=== PATIENT | male | born 1955 | race Caucasian/White ===

== ENCOUNTER 2021-08-25 08:50 | Outpatient (CLI) | payer MEDICARE | END 2021-08-25 08:51 | disposition home or self-care (01) | LOC: NM 08:50 | PROVIDERS: ATTEND Psychiatry & Neurology Neurology | DX: G20 Parkinson's disease (principal) | CPT/HCPCS: 78803; A9584 ==

== ENCOUNTER 2024-03-17 09:24 | Outpatient (CLI) | payer MEDICARE ==
[2024-03-17 10:14] LABS: #Basophils 0.03 10x3/uL (0.0-0.2); #Eosinphils 0.11 10x3/uL (0.0-0.5); #Monocytes 0.54 10x3/uL (0.0-1.1); #Neutrophils 5.31 10x3/uL (1.5-8.4); %Basophils 0.4 % (0.0-2.0); %Eosinophils 1.5 % (0.0-6.0); %Lymphocytes 19.4 % (18.0-47.0); %Monocytes 7.2 % (0.0-10.0); %Neutrophils 71.2 % (40.0-75.0); Hematocrit 45.2 % (38.8-50.0); Mean Corpuscular HGB CONC 35.4 g/dL (32.0-36.0); Mean Corpuscular Hemoglobin 31.8 pg (27.0-33.0); Mean Corpuscular Volume 89.9 fL (81.2-95.1); Mean Platelet Volume 10.4 fL (7.4-10.4); Platelet Count 186 10x3/uL (150-450); RBC Distribution Width 13.1 % (11.5-14.5); Red Blood Cell (RBC) Count 5.03 10x6/uL (4.32-5.72); White Blood Cell (WBC) Count 7.5 10x3/uL (3.5-10.5)
== END 2024-03-17 09:25 | disposition home or self-care (01) ==
LOC: LABBT 09:24
PROVIDERS: ATTEND Orthopaedic Surgery Hand Surgery
DX: Z01.818 Encounter for other preprocedural examination (principal); G56.01 Carpal tunnel syndrome, right upper limb; G56.21 Lesion of ulnar nerve, right upper limb
CPT/HCPCS: 85025; 93005; 93010

== ENCOUNTER 2024-03-20 06:13 | Day surgery (SDC) | payer MEDICARE ==
[2024-03-20] MEDS ORDERED: PROPOFOL 20 ML ONE (06:37)
[2024-03-20] MEDS ORDERED: fentaNYL PF 100 MCG/2 ML SYRINGE ONE (06:37)
[2024-03-20] MEDS ORDERED: CEFAZOLIN 2 GM VIAL ONE (06:40)
[2024-03-20] MEDS ORDERED: Sodium Chloride 0.9% 100 ML ONE (06:40)
[2024-03-20] MEDS ORDERED: Bupivacaine PF 0.5% 30 ML VIAL ONE (06:40)
[2024-03-20] MEDS ORDERED: Bacitracin Zinc Ointment 30 gm TUBE ONE (06:40)
[2024-03-20] MEDS ORDERED: Lidocaine 1% PF 5 ML VIAL ONE (07:16)
[2024-03-20] MEDS ORDERED: Dexamethasone 4 mg/ml Vial ONE (07:18)
[2024-03-20] MEDS ORDERED: Ondansetron PF 4 MG/2 ML Vial ONE (07:18)
[2024-03-20] MEDS ORDERED: Glycopyrrolate 0.2 MG/ML 5 ML SYRINGE ONE (07:21)
[2024-03-20] MEDS ORDERED: ePHEDrine Sulfate 50 MG/10 ML VIAL ONE (07:23)
[2024-03-20] MEDS ORDERED: PHENYLEPHRINE-NS 100 MCG/ML 10 ML SYRINGE ONE (07:43)
[2024-03-20] MEDS ORDERED: Ketorolac Tromethamine 30 MG (1 mL) VIAL ONE (09:03)
== END 2024-03-20 10:00 | disposition home or self-care (01) ==
LOC: SDC 06:13
PROVIDERS: ATTEND Orthopaedic Surgery Hand Surgery
PROC: 01N50ZZ Release Median Nerve, Open Approach (ICD-10-PCS; principal; 2024-03-20)
PROC: 01N40ZZ Release Ulnar Nerve, Open Approach (ICD-10-PCS; 2024-03-20)
PROC: 0JBG0ZZ Excision of Right Lower Arm Subcutaneous Tissue and Fascia, Open Approach (ICD-10-PCS; 2024-03-20)
DX: G56.01 Carpal tunnel syndrome, right upper limb (principal); G56.21 Lesion of ulnar nerve, right upper limb; D17.21 Benign lipomatous neoplasm of skin and subcutaneous tissue of right arm; Z87.891 Personal history of nicotine dependence
CPT/HCPCS: 25075; 64719; 64721; A6223; J0665; J1100; J1885; J2405; J2704; J3490; 88304

== ENCOUNTER 2024-07-23 10:12 | Outpatient (CLI) | payer MEDICARE, OTHER | END 2024-07-23 10:13 | disposition home or self-care (01) | LOC: SCSMRI 10:12 | PROVIDERS: ATTEND Orthopaedic Surgery Hand Surgery | DX: S83.241A Other tear of medial meniscus, current injury, right knee, initial encounter (principal); S83.511A Sprain of anterior cruciate ligament of right knee, initial encounter; M22.8X1 Other disorders of patella, right knee; M25.461 Effusion, right knee ==

== ENCOUNTER 2025-07-19 14:38 | Outpatient (CLI) | payer MEDICARE, OTHER ==
[2025-07-19 16:09] LABS: #Basophils 0.03 10x3/uL (0.0-0.2); #Eosinophils 0.09 10x3/uL (0.0-0.7); #Monocytes 0.67 10x3/uL (0.11-0.59); #Neutrophils 5.29 10x3/uL (1.40-6.50); %Basophils 0.4 % (0.0-1.0); %Eosinophils 1.1 % (0.0-10.0); %Lymphocytes 25.8 % (21.0-51.0); %Monocytes 8.2 % (0.0-10.0); %Neutrophils 64.3 % (42.0-75.0); Hematocrit 47.1 % (42.0-52.0); Hemoglobin 15.8 g/dL (14.0-18.0); Mean Corpuscular Hemoglobin 30.6 pg (27.0-31.0); Mean Corpuscular Volume 91.3 fL (78.0-98.0); Platelet Count 188 10x3/uL (130-400); Red Blood Cell (RBC) Count 5.16 mill/uL (4.70-6.10); White Blood Cell (WBC) Count 8.22 10x3/uL (4.8-10.8)
[2025-07-19 16:22] LABS: INR-International Normal Ratio 1.0; PTT 31.0 sec (22.9-36.1); Prothrombin Time 12.9 sec (12.0-14.7)
[2025-07-19 16:47] LABS: Anion Gap 11 mmol/L (10-20); BUN (Urea Nitrogen) 18 mg/dL (8.4-25.7); Calc. Creatinine Clearance 0 mL/min (70-130); Calcium 9.3 mg/dL (7.8-10.44); Carbon Dioxide 24 mmol/L (23-31); Chloride 105 mmol/L (98-107); Glucose 87 mg/dL (83-110); Potassium 3.9 mmol/L (3.5-5.1); Sodium 136 mmol/L (136-145)
[2025-07-19 18:24] LABS: Glucose, Urine (Dipstick) Normal (Negative); Leukocyte Negative Leu/uL (Negative); Protein, Urine (Dipstick) 10 mg/dL (Neg-Trace); RBC/HPF None Seen HPF (0-3); Specific Gravity, Urine 1.030 (1.002-1.036); WBC/HPF 0-3 HPF (0-3)
[2025-07-19 18:30] LABS: Bacteria/HPF 1+ HPF (None Seen)
== END 2025-07-19 14:39 | disposition home or self-care (01) ==
LOC: LABBT 14:38
PROVIDERS: ATTEND Urology
DX: Z01.818 Encounter for other preprocedural examination (principal); Z12.5 Encounter for screening for malignant neoplasm of prostate; N20.0 Calculus of kidney; G62.9 Polyneuropathy, unspecified; R35.0 Frequency of micturition; R39.11 Hesitancy of micturition; R97.20 Elevated prostate specific antigen [PSA]; N28.1 Cyst of kidney, acquired; J98.4 Other disorders of lung; Z87.898 Personal history of other specified conditions
CPT/HCPCS: 71046; 80048; 81001; 85025; 85610; 85730; 87086; 93005; 93010

== ENCOUNTER 2025-07-28 06:18 | Day surgery (SDC) | payer MEDICARE, OTHER ==
[2025-07-19 14:45] VITALS: BMI 25.7
[2025-07-28] MEDS ORDERED: LevoFLOXacin D5W 500 mg (100 mL) BAG ONE (06:41)
[2025-07-28] MEDS ORDERED: cefTRIAXone (ROCEPHIN) 2 GM VIAL ONE (06:57)
[2025-07-28] MEDS ORDERED: fentaNYL PF 100 MCG/2 ML SYRINGE ONE (07:29)
[2025-07-28] MEDS ORDERED: Ketamine In 0.9 % NaCl 50 MG/5 ML SYRINGE ONE (07:29)
[2025-07-28] MEDS ORDERED: Glycopyrrolate 0.2 MG/ML 5 ML SYRINGE ONE (07:30)
[2025-07-28] MEDS ORDERED: Lidocaine 1% PF 5 ML VIAL ONE (07:54)
[2025-07-28] MEDS ORDERED: PROPOFOL 200 MG/20 ML VIAL ONE (07:54)
[2025-07-28] MEDS ORDERED: PHENYLEPHRINE-NS 100 MCG/ML 10 ML SYRINGE ONE (08:16)
== END 2025-07-28 12:00 | disposition home or self-care (01) ==
LOC: SDC 06:18
PROVIDERS: ATTEND Urology
PROC: 0VB03ZX Excision of Prostate, Percutaneous Approach, Diagnostic (ICD-10-PCS; principal; 2025-07-28)
DX: N40.1 Benign prostatic hyperplasia with lower urinary tract symptoms (principal); R39.11 Hesitancy of micturition; R35.0 Frequency of micturition; Z87.891 Personal history of nicotine dependence; R97.20 Elevated prostate specific antigen [PSA]; Z98.890 Other specified postprocedural states
CPT/HCPCS: 55700; 76872; J0696; J1956; J2704; G0416; J3490